=== PATIENT | female | born 1995 | race Two or more races ===

== ENCOUNTER 2022-06-08 22:45 | Emergency (ER) | payer MEDICAID ==
[~2022-06-08] VITALS: Ht 165.1 cm; Wt 57.2 kg
[2022-06-08 23:46] VITALS: BP 136/87
[2022-06-09] MEDS ORDERED: diphenhdrAMINE HCL 50 MG/1 ML VL IM ONE (00:30)
[2022-06-09] MEDS ORDERED: methylPREDNISolone SOD SUCC 125 MG/2 ML VL IM ONE (00:30)
[2022-06-09] MEDS ORDERED: PRED20TA2 PO (00:33)
[2022-06-09] MEDS ORDERED: FAMOTIDINE (10MG/ML) 2ML VL IV ONE (01:45)
== END 2022-06-09 06:20 | disposition home or self-care (01) ==
LOC: ER 22:45
DX: R21 Rash and other nonspecific skin eruption (principal); T38.5X5A Adverse effect of other estrogens and progestogens, initial encounter; Y92.89 Other specified places as the place of occurrence of the external cause
CPT/HCPCS: 93005; 96372; 96374; 99284; J1200; J2930; J3490